=== PATIENT | female | born 1950 | race Caucasian/White ===

== ENCOUNTER 2018-01-07 08:36 | Emergency (ER) | payer MEDICARE, BC ==
[2018-01-07] MEDS: NS 1,000 ML IV (09:45)
[2018-01-07 10:26] LABS: BASO % 0.5 % (0.0-1.0); EOS # 0.2 10^3/uL (0.0-0.50); HEMOGLOBIN 12.2 g/dl (12.0-15.5); IMMATURE GRANULOCYTE % 0.5 % (0-3.0); LYMPH # 1.8 10^3/uL (1.5-4.5); LYMPH % 23.8 % (24.0-44.0); MEAN CORPUSCULAR HGB CONC 32.1 g/dl (32.0-36.5); MEAN CORPUSCULAR VOLUME 93.4 fl (80.0-96.0); MONO # 0.9 10^3/uL (0.0-0.8); MONO % 11.5 % (0.0-5.0); NEUTROPHILS # 4.7 10^3/uL (1.8-7.7); NEUTROPHILS % 61.7 % (36.0-66.0); PLATELET COUNT, AUTOMATED 328 10^3/uL (150-450); RED BLOOD COUNT 4.07 10^6/uL (4.00-5.40); RED CELL DISTRIBUTION WIDTH 11.8 % (11.5-14.5); WHITE BLOOD COUNT 7.6 10^3/uL (4.0-10.0)
[2018-01-07 11:34] LABS: ALBUMIN 2.8 GM/DL (3.2-5.2); ALKALINE PHOSPHATASE 69 U/L (45-117); ALT/SGPT 78 U/L (12-78); ANION GAP 4 MEQ/L (8-16); AST/SGOT 24 U/L (7-37); BILIRUBIN,DIRECT 0.1 MG/DL (0.0-0.2); BILIRUBIN,TOTAL 0.4 MG/DL (0.2-1.0); BLOOD UREA NITROGEN 9 MG/DL (7-18); CALCIUM LEVEL 10.1 MG/DL (8.8-10.2); CARBON DIOXIDE LEVEL 32 MEQ/L (21-32); CHLORIDE LEVEL 106 MEQ/L (98-107); CREATININE FOR GFR 0.74 MG/DL (0.55-1.30); GLOMERULAR FILTRATION RATE > 60.0 (>45); GLUCOSE, FASTING 100 MG/DL (70-100); LIPASE 407 U/L (73-393); POTASSIUM SERUM 3.7 MEQ/L (3.5-5.1); SODIUM LEVEL 142 MEQ/L (136-145); TOTAL PROTEIN 6.8 GM/DL (6.4-8.2)
[2018-01-07 13:54] LABS: ABG BASE EXCESS 0.1 (-2.0-2.0); ABG HCO3 23.8 MEQ/L (22.0-26.0); ABG O2 SATURATION 93.7 % (95.0-99.0); ABG PARTIAL PRESSURE CO2 35.3 mmHg (35.0-45.0); ABG PARTIAL PRESSURE O2 68.6 mmHg (75.0-100.0); ABG STANDARD HCO3 24.5 MEQ/L (22.0-26.0); ABG TOTAL CO2 24.8 MEQ/L (23.0-31.0); ABG pH (ARTERIAL) 7.446 UNITS (7.350-7.450)
== END 2018-01-07 14:59 | disposition home or self-care (01) ==
LOC: M ED 08:36
DX: J90 Pleural effusion, not elsewhere classified (principal); Z79.899 Other long term (current) drug therapy; Z86.39 Personal history of other endocrine, nutritional and metabolic disease; Z87.19 Personal history of other diseases of the digestive system; Z98.890 Other specified postprocedural states
CPT/HCPCS: 71046

== ENCOUNTER 2018-04-09 13:11 | Inpatient (IN) | payer MEDICARE, BC ==
[2018-04-09] MEDS ORDERED: LIDOCAINE 1% MDV 20ML VIAL SQ (13:30)
[2018-04-09] MEDS ORDERED: NS 1,000 ML IV (13:30)
[2018-04-09] MEDS: LR 1,000 ML IV ×3 (13:57→20:34)
[2018-04-09] MEDS ORDERED: fentaNYL 100 MCG/2 ML INJECTION (J3010) As Ordered ×2 (15:48→17:12)
[2018-04-09] MEDS ORDERED: PROPOFOL 200 MG/20 ML VIAL As Ordered (15:48)
[2018-04-09] MEDS ORDERED: ROCURONIUM BROMIDE 50 MG/5 ML VIAL As Ordered (15:48)
[2018-04-09] MEDS ORDERED: LIDOCAINE 2% INJ 100 MG/5 ML SDV (FOR ANES.) As Ordered (15:48)
[2018-04-09] MEDS ORDERED: ONDANSETRON 4MG/2ML VIAL (J2405) As Ordered ×2 (15:48→17:07)
[2018-04-09] MEDS ORDERED: MIDAZOLAM INJ 2 MG/2 ML VIAL (J2250) As Ordered (15:48)
[2018-04-09] MEDS ORDERED: KETOROLAC 60 MG/2 ML VIAL (J1885) As Ordered (15:48)
[2018-04-09] MEDS ORDERED: NEOSTIGMINE 10 MG/10 ML VIAL (J2710) As Ordered (15:48)
[2018-04-09] MEDS ORDERED: GLYCOPYRROLATE INJ 0.2 MG/ML 2 ML VIAL As Ordered (15:48)
[2018-04-09] MEDS ORDERED: dexameTHASONE 4 MG/ML 1ML VIAL (J1100) As Ordered (15:48)
[2018-04-09] MEDS: ISOVUE-300 61% 50ML VIAL (Q9967) As Ordered (16:26)
[2018-04-09] MEDS ORDERED: EPINEPHrine 1MG/10ML SYRINGE 1.5IN As Ordered (16:43)
[2018-04-09] MEDS: EPINEPHrine 1MG/10ML SYRINGE 1.5IN As Ordered (16:45)
[2018-04-09] MEDS: EPINEPHrine 1MG/ML INJ 30ML MD-VIAL As Ordered (16:57)
[2018-04-09] MEDS: ONDANSETRON 4MG/2ML VIAL (J2405) IV (17:16)
[2018-04-09] MEDS: fentaNYL 100 MCG/2 ML INJECTION (J3010) IV ×2 (17:25→17:26)
[2018-04-09] MEDS ORDERED: PERCOCET 5MG/325MG TAB PO (17:30)
[2018-04-09] MEDS ORDERED: HYDROMORPHONE HCL 0.5 MG/ 0.5 ML SYRINGE (J1170 PER 1) As Ordered (17:45)
[2018-04-09] MEDS: HYDROMORPHONE HCL 0.5 MG/ 0.5 ML SYRINGE (J1170 PER 1) IV ×2 (17:49→18:21)
[2018-04-09] MEDS ORDERED: MEPERIDINE 50 MG/ML 1ML VIAL (J2175) IM (18:00)
[2018-04-09] MEDS ORDERED: OXAZEPAM 10 MG CAP PO (18:45)
[2018-04-09 19:18] LABS: HEMOGLOBIN 14.4 g/dl (12.0-15.5); MEAN CORPUSCULAR HEMOGLOBIN 30.8 pg (27.0-33.0); MEAN CORPUSCULAR VOLUME 96.2 fl (80.0-96.0); PLATELET COUNT, AUTOMATED 219 10^3/uL (150-450); RED BLOOD COUNT 4.68 10^6/uL (4.00-5.40); RED CELL DISTRIBUTION WIDTH 13.2 % (11.5-14.5); WHITE BLOOD COUNT 8.3 10^3/uL (4.0-10.0)
[2018-04-09 19:38] LABS: ALBUMIN 3.4 GM/DL (3.2-5.2); ALKALINE PHOSPHATASE 54 U/L (45-117); ALT/SGPT 31 U/L (12-78); ANION GAP 7 MEQ/L (8-16); AST/SGOT 20 U/L (7-37); BILIRUBIN,TOTAL 0.3 MG/DL (0.2-1.0); BLOOD UREA NITROGEN 18 MG/DL (7-18); CALCIUM LEVEL 9.3 MG/DL (8.8-10.2); CARBON DIOXIDE LEVEL 29 MEQ/L (21-32); CHLORIDE LEVEL 106 MEQ/L (98-107); CREATININE FOR GFR 0.82 MG/DL (0.55-1.30); GLOMERULAR FILTRATION RATE > 60.0 (>45); GLUCOSE, FASTING 101 MG/DL (70-100); LIPASE 512 U/L (73-393); MAGNESIUM LEVEL 1.9 MG/DL (1.8-2.4); POTASSIUM SERUM 3.9 MEQ/L (3.5-5.1); SODIUM LEVEL 142 MEQ/L (136-145); TOTAL PROTEIN 6.8 GM/DL (6.4-8.2)
[2018-04-09] MEDS: MORPHINE 4 MG/ML 1ML VIAL/SYRINGE (J2270) IV ×2 (19:47→23:11)
[2018-04-09] MEDS: OMEPRAZOLE 20 MG CAP PO (23:10)
[2018-04-10] MEDS: MORPHINE 4 MG/ML 1ML VIAL/SYRINGE (J2270) IV ×5 (02:52→18:18)
[2018-04-10] MEDS: KETOROLAC 30 MG/ML VIAL (J1885) IV (03:38)
[2018-04-10] MEDS: LR 1,000 ML IV ×3 (04:48→17:02)
[2018-04-10 06:48] LABS: BASO % 0.2 % (0.0-1.0); HEMATOCRIT 44.5 % (36.0-47.0); HEMOGLOBIN 14.2 g/dl (12.0-15.5); IMMATURE GRANULOCYTE % 0.4 % (0-3.0); LYMPH # 1.2 10^3/uL (1.5-4.5); LYMPH % 10.5 % (24.0-44.0); MEAN CORPUSCULAR HGB CONC 31.9 g/dl (32.0-36.5); MEAN CORPUSCULAR VOLUME 93.9 fl (80.0-96.0); MONO # 0.5 10^3/uL (0.0-0.8); MONO % 4.1 % (0.0-5.0); NEUTROPHILS # 9.4 10^3/uL (1.8-7.7); NEUTROPHILS % 84.8 % (36.0-66.0); PLATELET COUNT, AUTOMATED 251 10^3/uL (150-450); RED BLOOD COUNT 4.74 10^6/uL (4.00-5.40); RED CELL DISTRIBUTION WIDTH 12.8 % (11.5-14.5)
[2018-04-10 07:02] LABS: AMYLASE 434 U/L (25-115)
[2018-04-10 07:15] LABS: ALBUMIN 3.2 GM/DL (3.2-5.2); ALBUMIN/GLOBULIN RATIO 1.07 (1.00-1.93); ALKALINE PHOSPHATASE 57 U/L (45-117); ALT/SGPT 28 U/L (12-78); ANION GAP 7 MEQ/L (8-16); AST/SGOT 16 U/L (7-37); BILIRUBIN,TOTAL 0.3 MG/DL (0.2-1.0); BLOOD UREA NITROGEN 20 MG/DL (7-18); CALCIUM LEVEL 9.4 MG/DL (8.8-10.2); CARBON DIOXIDE LEVEL 30 MEQ/L (21-32); CHLORIDE LEVEL 105 MEQ/L (98-107); CREATININE FOR GFR 0.81 MG/DL (0.55-1.30); GLOMERULAR FILTRATION RATE > 60.0 (>45); GLUCOSE, FASTING 119 MG/DL (70-100); LIPASE 5034 U/L (73-393); SODIUM LEVEL 142 MEQ/L (136-145); TOTAL PROTEIN 6.2 GM/DL (6.4-8.2)
[2018-04-10 07:16] LABS: POTASSIUM SERUM 5.3 MEQ/L (3.5-5.1)
[2018-04-10] MEDS: OMEPRAZOLE 20 MG CAP PO (08:27)
[2018-04-10] MEDS: ACETAMINOPHEN TAB 650MG DOSE (2X325MG) PO ×2 (08:27→13:26)
[2018-04-10] MEDS: SERTRALINE HCL 25 MG TABLET PO (08:28)
[2018-04-10] MEDS ORDERED: LOSARTAN 50 MG TAB PO (09:00)
[2018-04-10] MEDS: ONDANSETRON 4MG/2ML VIAL (J2405) IV ×2 (09:45→17:01)
[2018-04-10] MEDS: MEPERIDINE INJ 25 MG/ML VIAL (J2175) IM (13:23)
[2018-04-10] MEDS ORDERED: ISOVUE-370 76% 100ML VIAL (Q9967) As Ordered (15:52)
[2018-04-10] MEDS: MEROPENEM INJ 1 GM in APPROPRIATE DILUENT 1 EA IV (17:01)
[2018-04-10 18:42] LABS: LACTIC ACID SEPSIS PROTOCOL 2.1 MMOL/L (0.4-2.0)
[2018-04-10] MEDS: PANTOPRAZOLE 40MG INJ (PROTONIX) (C9113) IV (21:21)
[2018-04-10] MEDS: HYDROMORPHONE HCL 0.5 MG/ 0.5 ML SYRINGE (J1170 PER 1) IV (21:21)
[2018-04-10] MEDS ORDERED: MEPERIDINE 50 MG/ML 1ML VIAL (J2175) IM (21:45)
[2018-04-11] MEDS: MEROPENEM INJ 1 GM in APPROPRIATE DILUENT 1 EA IV ×3 (00:28→16:42)
[2018-04-11] MEDS: HYDROMORPHONE HCL 0.5 MG/ 0.5 ML SYRINGE (J1170 PER 1) IV ×7 (00:30→20:40)
[2018-04-11] MEDS: LR 1,000 ML IV ×4 (01:58→20:40)
[2018-04-11 05:11] LABS: HEMATOCRIT 47.9 % (36.0-47.0); HEMOGLOBIN 15.1 g/dl (12.0-15.5); MEAN CORPUSCULAR HEMOGLOBIN 30.4 pg (27.0-33.0); MEAN CORPUSCULAR HGB CONC 31.5 g/dl (32.0-36.5); MEAN CORPUSCULAR VOLUME 96.4 fl (80.0-96.0); PLATELET COUNT, AUTOMATED 240 10^3/uL (150-450); RED BLOOD COUNT 4.97 10^6/uL (4.00-5.40); RED CELL DISTRIBUTION WIDTH 13.3 % (11.5-14.5); WHITE BLOOD COUNT 7.3 10^3/uL (4.0-10.0)
[2018-04-11 05:33] LABS: LACTIC ACID SEPSIS PROTOCOL 1.2 MMOL/L (0.4-2.0)
[2018-04-11 05:35] LABS: ALBUMIN 2.8 GM/DL (3.2-5.2); ALBUMIN/GLOBULIN RATIO 0.85 (1.00-1.93); ALKALINE PHOSPHATASE 40 U/L (45-117); ALT/SGPT 22 U/L (12-78); ANION GAP 7 MEQ/L (8-16); AST/SGOT 12 U/L (7-37); BILIRUBIN,TOTAL 0.5 MG/DL (0.2-1.0); BLOOD UREA NITROGEN 16 MG/DL (7-18); CALCIUM LEVEL 8.7 MG/DL (8.8-10.2); CARBON DIOXIDE LEVEL 27 MEQ/L (21-32); CHLORIDE LEVEL 107 MEQ/L (98-107); CREATININE FOR GFR 0.77 MG/DL (0.55-1.30); GLOMERULAR FILTRATION RATE > 60.0 (>45); GLUCOSE, FASTING 120 MG/DL (70-100); LIPASE 3528 U/L (73-393); MAGNESIUM LEVEL 1.8 MG/DL (1.8-2.4); POTASSIUM SERUM 4.3 MEQ/L (3.5-5.1); SODIUM LEVEL 141 MEQ/L (136-145); TOTAL PROTEIN 6.1 GM/DL (6.4-8.2)
[2018-04-11] MEDS: PANTOPRAZOLE 40MG INJ (PROTONIX) (C9113) IV ×2 (08:13→20:39)
[2018-04-11] MEDS: ONDANSETRON 4MG/2ML VIAL (J2405) IV ×2 (08:44→14:39)
[2018-04-12] MEDS: MEROPENEM INJ 1 GM in APPROPRIATE DILUENT 1 EA IV ×3 (00:52→17:23)
[2018-04-12] MEDS: HYDROMORPHONE HCL 0.5 MG/ 0.5 ML SYRINGE (J1170 PER 1) IV ×3 (00:53→10:46)
[2018-04-12 04:57] LABS: HEMATOCRIT 47.2 % (36.0-47.0); HEMOGLOBIN 14.7 g/dl (12.0-15.5); MEAN CORPUSCULAR HEMOGLOBIN 30.2 pg (27.0-33.0); MEAN CORPUSCULAR HGB CONC 31.1 g/dl (32.0-36.5); MEAN CORPUSCULAR VOLUME 97.1 fl (80.0-96.0); PLATELET COUNT, AUTOMATED 230 10^3/uL (150-450); RED BLOOD COUNT 4.86 10^6/uL (4.00-5.40); RED CELL DISTRIBUTION WIDTH 13.4 % (11.5-14.5); WHITE BLOOD COUNT 7.8 10^3/uL (4.0-10.0)
[2018-04-12 05:15] LABS: ALBUMIN 2.1 GM/DL (3.2-5.2); ALBUMIN/GLOBULIN RATIO 0.62 (1.00-1.93); ALKALINE PHOSPHATASE 32 U/L (45-117); ALT/SGPT 15 U/L (12-78); ANION GAP 6 MEQ/L (8-16); AST/SGOT 10 U/L (7-37); BILIRUBIN,TOTAL 0.4 MG/DL (0.2-1.0); BLOOD UREA NITROGEN 15 MG/DL (7-18); CARBON DIOXIDE LEVEL 30 MEQ/L (21-32); CHLORIDE LEVEL 106 MEQ/L (98-107); GLOMERULAR FILTRATION RATE > 60.0 (>45); GLUCOSE, FASTING 105 MG/DL (70-100); LIPASE 1030 U/L (73-393); MAGNESIUM LEVEL 1.8 MG/DL (1.8-2.4); POTASSIUM SERUM 4.3 MEQ/L (3.5-5.1); SODIUM LEVEL 142 MEQ/L (136-145); TOTAL PROTEIN 5.5 GM/DL (6.4-8.2)
[2018-04-12] MEDS: LR 1,000 ML IV (05:25)
[2018-04-12] MEDS: PANTOPRAZOLE 40MG INJ (PROTONIX) (C9113) IV ×2 (08:20→19:42)
[2018-04-12] MEDS: PERCOCET 5MG/325MG TAB PO ×3 (14:14→23:14)
[2018-04-12] MEDS: ACETAMINOPHEN TAB 650MG DOSE (2X325MG) PO (17:23)
[2018-04-12] MEDS: LOSARTAN 50 MG TAB PO (19:42)
[2018-04-12] MEDS: ONDANSETRON 4MG/2ML VIAL (J2405) IV (19:46)
[2018-04-13] MEDS: MEROPENEM INJ 1 GM in APPROPRIATE DILUENT 1 EA IV ×3 (01:13→16:09)
[2018-04-13] MEDS: PERCOCET 5MG/325MG TAB PO ×4 (03:36→22:20)
[2018-04-13] MEDS: ONDANSETRON 4MG/2ML VIAL (J2405) IV ×3 (03:36→18:19)
[2018-04-13 06:08] LABS: HEMATOCRIT 40.7 % (36.0-47.0); MEAN CORPUSCULAR HGB CONC 31.9 g/dl (32.0-36.5); MEAN CORPUSCULAR VOLUME 97.1 fl (80.0-96.0); PLATELET COUNT, AUTOMATED 250 10^3/uL (150-450); RED BLOOD COUNT 4.19 10^6/uL (4.00-5.40); RED CELL DISTRIBUTION WIDTH 13.3 % (11.5-14.5); WHITE BLOOD COUNT 9.6 10^3/uL (4.0-10.0)
[2018-04-13 06:43] LABS: ALBUMIN 1.9 GM/DL (3.2-5.2); ALBUMIN/GLOBULIN RATIO 0.54 (1.00-1.93); ALKALINE PHOSPHATASE 31 U/L (45-117); ALT/SGPT 13 U/L (12-78); ANION GAP 6 MEQ/L (8-16); AST/SGOT 14 U/L (7-37); BILIRUBIN,TOTAL 0.5 MG/DL (0.2-1.0); BLOOD UREA NITROGEN 16 MG/DL (7-18); CALCIUM LEVEL 9.3 MG/DL (8.8-10.2); CARBON DIOXIDE LEVEL 32 MEQ/L (21-32); CHLORIDE LEVEL 103 MEQ/L (98-107); CREATININE FOR GFR 0.64 MG/DL (0.55-1.30); GLOMERULAR FILTRATION RATE > 60.0 (>45); GLUCOSE, FASTING 110 MG/DL (70-100); LIPASE 341 U/L (73-393); MAGNESIUM LEVEL 2.1 MG/DL (1.8-2.4); POTASSIUM SERUM 4.1 MEQ/L (3.5-5.1); SODIUM LEVEL 141 MEQ/L (136-145); TOTAL PROTEIN 5.4 GM/DL (6.4-8.2)
[2018-04-13] MEDS: PANTOPRAZOLE 40MG INJ (PROTONIX) (C9113) IV ×2 (08:13→20:01)
[2018-04-13] MEDS: SERTRALINE HCL 25 MG TABLET PO (08:14)
[2018-04-13] MEDS: OMEPRAZOLE 20 MG CAP PO (08:14)
[2018-04-13] MEDS: MORPHINE 4 MG/ML 1ML VIAL/SYRINGE (J2270) IV (08:14)
[2018-04-13] MEDS: LOSARTAN 50 MG TAB PO (20:01)
[2018-04-14] MEDS: MEROPENEM INJ 1 GM in APPROPRIATE DILUENT 1 EA IV ×3 (01:12→16:54)
[2018-04-14] MEDS: PERCOCET 5MG/325MG TAB PO ×3 (02:32→21:35)
[2018-04-14 06:05] LABS: HEMATOCRIT 39.3 % (36.0-47.0); HEMOGLOBIN 12.4 g/dl (12.0-15.5); MEAN CORPUSCULAR HEMOGLOBIN 30.5 pg (27.0-33.0); MEAN CORPUSCULAR HGB CONC 31.6 g/dl (32.0-36.5); MEAN CORPUSCULAR VOLUME 96.8 fl (80.0-96.0); PLATELET COUNT, AUTOMATED 261 10^3/uL (150-450); RED BLOOD COUNT 4.06 10^6/uL (4.00-5.40); RED CELL DISTRIBUTION WIDTH 13.3 % (11.5-14.5); WHITE BLOOD COUNT 9.3 10^3/uL (4.0-10.0)
[2018-04-14 06:17] LABS: ALBUMIN 1.9 GM/DL (3.2-5.2); ALBUMIN/GLOBULIN RATIO 0.51 (1.00-1.93); ALKALINE PHOSPHATASE 37 U/L (45-117); ALT/SGPT 14 U/L (12-78); ANION GAP 6 MEQ/L (8-16); AST/SGOT 21 U/L (7-37); BILIRUBIN,TOTAL 0.4 MG/DL (0.2-1.0); BLOOD UREA NITROGEN 16 MG/DL (7-18); CALCIUM LEVEL 9.2 MG/DL (8.8-10.2); CARBON DIOXIDE LEVEL 32 MEQ/L (21-32); CHLORIDE LEVEL 103 MEQ/L (98-107); CREATININE FOR GFR 0.59 MG/DL (0.55-1.30); GLOMERULAR FILTRATION RATE > 60.0 (>45); GLUCOSE, FASTING 95 MG/DL (70-100); LIPASE 173 U/L (73-393); MAGNESIUM LEVEL 2.4 MG/DL (1.8-2.4); POTASSIUM SERUM 4.2 MEQ/L (3.5-5.1); SODIUM LEVEL 141 MEQ/L (136-145); TOTAL PROTEIN 5.6 GM/DL (6.4-8.2)
[2018-04-14] MEDS: OMEPRAZOLE 20 MG CAP PO (09:32)
[2018-04-14] MEDS: PANTOPRAZOLE 40MG INJ (PROTONIX) (C9113) IV ×2 (09:32→21:35)
[2018-04-14] MEDS: SERTRALINE HCL 25 MG TABLET PO (09:32)
[2018-04-14] MEDS: ACETAMINOPHEN TAB 650MG DOSE (2X325MG) PO ×2 (13:20→17:59)
[2018-04-14] MEDS: ONDANSETRON 4MG/2ML VIAL (J2405) IV (17:19)
[2018-04-14] MEDS: LOSARTAN 50 MG TAB PO (21:34)
[2018-04-15] MEDS: MEROPENEM INJ 1 GM in APPROPRIATE DILUENT 1 EA IV ×3 (01:21→17:09)
[2018-04-15] MEDS: ONDANSETRON 4MG/2ML VIAL (J2405) IV ×3 (01:21→19:52)
[2018-04-15] MEDS: PERCOCET 5MG/325MG TAB PO ×2 (01:45→21:38)
[2018-04-15 05:56] LABS: HEMATOCRIT 37.9 % (36.0-47.0); HEMOGLOBIN 12.1 g/dl (12.0-15.5); MEAN CORPUSCULAR HEMOGLOBIN 30.6 pg (27.0-33.0); MEAN CORPUSCULAR HGB CONC 31.9 g/dl (32.0-36.5); MEAN CORPUSCULAR VOLUME 95.7 fl (80.0-96.0); PLATELET COUNT, AUTOMATED 254 10^3/uL (150-450); RED BLOOD COUNT 3.96 10^6/uL (4.00-5.40); RED CELL DISTRIBUTION WIDTH 13.2 % (11.5-14.5); WHITE BLOOD COUNT 8.7 10^3/uL (4.0-10.0)
[2018-04-15 06:18] LABS: ALBUMIN 1.8 GM/DL (3.2-5.2); ALBUMIN/GLOBULIN RATIO 0.47 (1.00-1.93); ALKALINE PHOSPHATASE 64 U/L (45-117); ALT/SGPT 22 U/L (12-78); ANION GAP 4 MEQ/L (8-16); AST/SGOT 24 U/L (7-37); BILIRUBIN,TOTAL 0.4 MG/DL (0.2-1.0); BLOOD UREA NITROGEN 12 MG/DL (7-18); CALCIUM LEVEL 9.5 MG/DL (8.8-10.2); CARBON DIOXIDE LEVEL 36 MEQ/L (21-32); CHLORIDE LEVEL 101 MEQ/L (98-107); CREATININE FOR GFR 0.54 MG/DL (0.55-1.30); GLOMERULAR FILTRATION RATE > 60.0 (>45); GLUCOSE, FASTING 92 MG/DL (70-100); LIPASE 224 U/L (73-393); MAGNESIUM LEVEL 2.1 MG/DL (1.8-2.4); SODIUM LEVEL 141 MEQ/L (136-145); TOTAL PROTEIN 5.6 GM/DL (6.4-8.2)
[2018-04-15] MEDS: ACETAMINOPHEN TAB 650MG DOSE (2X325MG) PO ×3 (08:26→17:10)
[2018-04-15] MEDS: PANTOPRAZOLE 40MG INJ (PROTONIX) (C9113) IV ×2 (08:26→21:38)
[2018-04-15] MEDS: OMEPRAZOLE 20 MG CAP PO (08:26)
[2018-04-15] MEDS: SERTRALINE HCL 25 MG TABLET PO (08:26)
[2018-04-15] MEDS: SENOKOT S TAB PO ×2 (09:00→21:38)
[2018-04-15] MEDS: MOM 30ML SUSPENSION UDC PO (17:09)
[2018-04-15] MEDS: LOSARTAN 50 MG TAB PO (21:37)
[2018-04-16] MEDS: MEROPENEM INJ 1 GM in APPROPRIATE DILUENT 1 EA IV ×3 (01:27→16:00)
[2018-04-16] MEDS: PERCOCET 5MG/325MG TAB PO ×5 (02:01→20:27)
[2018-04-16 05:55] LABS: HEMATOCRIT 36.9 % (36.0-47.0); HEMOGLOBIN 11.8 g/dl (12.0-15.5); MEAN CORPUSCULAR HEMOGLOBIN 30.3 pg (27.0-33.0); MEAN CORPUSCULAR VOLUME 94.6 fl (80.0-96.0); PLATELET COUNT, AUTOMATED 281 10^3/uL (150-450); RED CELL DISTRIBUTION WIDTH 13.3 % (11.5-14.5); WHITE BLOOD COUNT 10.8 10^3/uL (4.0-10.0)
[2018-04-16 06:23] LABS: ALBUMIN 1.9 GM/DL (3.2-5.2); ALBUMIN/GLOBULIN RATIO 0.53 (1.00-1.93); ALKALINE PHOSPHATASE 49 U/L (45-117); ALT/SGPT 26 U/L (12-78); ANION GAP 7 MEQ/L (8-16); AST/SGOT 29 U/L (7-37); BILIRUBIN,TOTAL 0.3 MG/DL (0.2-1.0); BLOOD UREA NITROGEN 11 MG/DL (7-18); CALCIUM LEVEL 9.3 MG/DL (8.8-10.2); CARBON DIOXIDE LEVEL 32 MEQ/L (21-32); CHLORIDE LEVEL 102 MEQ/L (98-107); CREATININE FOR GFR 0.48 MG/DL (0.55-1.30); GLOMERULAR FILTRATION RATE > 60.0 (>45); GLUCOSE, FASTING 103 MG/DL (70-100); LIPASE 322 U/L (73-393); MAGNESIUM LEVEL 2.2 MG/DL (1.8-2.4); POTASSIUM SERUM 3.7 MEQ/L (3.5-5.1); SODIUM LEVEL 141 MEQ/L (136-145); TOTAL PROTEIN 5.5 GM/DL (6.4-8.2)
[2018-04-16] MEDS: OMEPRAZOLE 20 MG CAP PO (08:11)
[2018-04-16] MEDS: SENOKOT S TAB PO ×2 (08:11→20:27)
[2018-04-16] MEDS: PANTOPRAZOLE 40MG INJ (PROTONIX) (C9113) IV ×2 (08:11→20:26)
[2018-04-16] MEDS: SERTRALINE HCL 25 MG TABLET PO (08:11)
[2018-04-16] MEDS: MOM 30ML SUSPENSION UDC PO (08:14)
[2018-04-16] MEDS: ONDANSETRON 4MG/2ML VIAL (J2405) IV ×2 (09:25→23:21)
[2018-04-16] MEDS: FUROSEMIDE 40 MG TAB PO (16:00)
[2018-04-16] MEDS: LOSARTAN 50 MG TAB PO (20:26)
[2018-04-17] MEDS: PERCOCET 5MG/325MG TAB PO ×5 (00:41→23:57)
[2018-04-17] MEDS: MEROPENEM INJ 1 GM in APPROPRIATE DILUENT 1 EA IV ×3 (01:47→18:07)
[2018-04-17 08:59] LABS: HEMATOCRIT 39.7 % (36.0-47.0); HEMOGLOBIN 12.5 g/dl (12.0-15.5); MEAN CORPUSCULAR HEMOGLOBIN 30.7 pg (27.0-33.0); MEAN CORPUSCULAR HGB CONC 31.5 g/dl (32.0-36.5); MEAN CORPUSCULAR VOLUME 97.5 fl (80.0-96.0); PLATELET COUNT, AUTOMATED 300 10^3/uL (150-450); RED BLOOD COUNT 4.07 10^6/uL (4.00-5.40); RED CELL DISTRIBUTION WIDTH 13.4 % (11.5-14.5); WHITE BLOOD COUNT 12.5 10^3/uL (4.0-10.0)
[2018-04-17 09:05] LABS: ADD MANUAL DIFFER YES; DIFF SLIDE NUMBER 93; POSITIVE MORPH POS FLAG
[2018-04-17 09:20] LABS: LYMPHOCYTES 12 % (16-52); MONOCYTES 10 % (0-8); NEUTROPHILS 78 % (35-75); PLATELET ESTIMATE NORMAL (NORMAL)
[2018-04-17 09:42] LABS: ALBUMIN 2.1 GM/DL (3.2-5.2); ALBUMIN/GLOBULIN RATIO 0.68 (1.00-1.93); ALKALINE PHOSPHATASE 57 U/L (45-117); ALT/SGPT 30 U/L (12-78); ANION GAP 6 MEQ/L (8-16); AST/SGOT 30 U/L (7-37); BILIRUBIN,TOTAL 0.4 MG/DL (0.2-1.0); BLOOD UREA NITROGEN 10 MG/DL (7-18); CALCIUM LEVEL 9.4 MG/DL (8.8-10.2); CARBON DIOXIDE LEVEL 36 MEQ/L (21-32); CHLORIDE LEVEL 98 MEQ/L (98-107); CREATININE FOR GFR 0.54 MG/DL (0.55-1.30); GLOMERULAR FILTRATION RATE > 60.0 (>45); GLUCOSE, FASTING 94 MG/DL (70-100); MAGNESIUM LEVEL 2.2 MG/DL (1.8-2.4); POTASSIUM SERUM 4.1 MEQ/L (3.5-5.1); SODIUM LEVEL 140 MEQ/L (136-145); TOTAL PROTEIN 5.2 GM/DL (6.4-8.2)
[2018-04-17] MEDS: PANTOPRAZOLE 40MG INJ (PROTONIX) (C9113) IV ×2 (10:14→20:10)
[2018-04-17] MEDS: OMEPRAZOLE 20 MG CAP PO (10:14)
[2018-04-17] MEDS: SERTRALINE HCL 25 MG TABLET PO (10:14)
[2018-04-17] MEDS: FUROSEMIDE 40 MG TAB PO ×2 (10:15→20:09)
[2018-04-17] MEDS: SENOKOT S TAB PO ×2 (10:15→20:09)
[2018-04-17] MEDS: LACTULOSE 20 GM/30 ML SYRUP UD PO ×3 (12:45→23:56)
[2018-04-17] MEDS: MAG SULF 1GM/100ML (MAG RUN) 1 GM in APPROPRIATE DILUENT 1 EA IV (12:45)
[2018-04-17] MEDS ORDERED: PERCOCET 5MG/325MG TAB PO (15:00)
[2018-04-17 15:02] LABS: LDH LACTATE DEHYDROGENASE 275 U/L (84-246)
[2018-04-17 15:07] LABS: INR 1.22; PROTHROMBIN TIME 15.6 SECONDS (12.1-14.4)
[2018-04-17 16:40] LABS: APPEARANCE, BODY FLUID HAZY (CLEAR); PLEURAL FL COLOR YELLOW (COLORLESS); SOURCE, BODY FLUID PLEURAL
[2018-04-17 16:46] LABS: BF DIFF IF INDICATED? YES (NO); BF MONONUCLEAR CELL % 75.8 % (0-0); BF POLYMORPHONUCLEAR CELL % 24.2 % (0-0); RBC BODY FLUID < 2 10^3/uL (<2); WBC BODY FLUID 240 /uL (0-10)
[2018-04-17 17:04] LABS: PH BODY FLUID 7.676 UNITS (NOT ESTABLISHED); SOURCE, BODY FLUID pH PLEURAL
[2018-04-17 17:07] LABS: AMYLASE, BODY FLUID 150 U/L (NOT ESTABLISHED); CHOLESTEROL, BODY FLUID < 50 MG/DL (NOT ESTABLISHED); LDH, BODY FLUID 183 U/L (NOT ESTABLISHED); SOURCE, BODY FLUID ALBUMIN PLEURAL; SOURCE, BODY FLUID AMYLASE PLEURAL; SOURCE, BODY FLUID CHOL PLEURAL; SOURCE, BODY FLUID GLUCOSE PLEURAL; SOURCE, BODY FLUID LDH PLEURAL; SOURCE, BODY FLUID TOT PROTEIN PLEURAL; SOURCE, BODY FLUID TRIG PLEURAL; TOTAL PROTEIN, BODY FLUID 2.3 G/DL (NOT ESTABLISHED); TRIGLYCERIDE, BODY FLUID 14 MG/DL (NOT ESTABLISHED)
[2018-04-17] MEDS: LevoFLOXacin 750 MG TABLET PO (19:46)
[2018-04-17] MEDS: CALCIUM CARBONATE 500 MG CHEW U/D PO (20:09)
[2018-04-17] MEDS: LOSARTAN 50 MG TAB PO (20:10)
[2018-04-18] MEDS: CALCIUM CARBONATE 500 MG CHEW U/D PO (04:01)
[2018-04-18] MEDS: PERCOCET 5MG/325MG TAB PO ×3 (04:01→12:42)
[2018-04-18] MEDS: LACTULOSE 20 GM/30 ML SYRUP UD PO (05:12)
[2018-04-18 06:54] LABS: BASO % 0.3 % (0.0-1.0); EOS # 0.1 10^3/uL (0.0-0.50); EOS % 0.6 % (0.0-3.0); HEMATOCRIT 36.9 % (36.0-47.0); HEMOGLOBIN 11.7 g/dl (12.0-15.5); IMMATURE GRANULOCYTE % 1.6 % (0-3.0); LYMPH # 1.7 10^3/uL (1.5-4.5); LYMPH % 13.7 % (24.0-44.0); MEAN CORPUSCULAR HEMOGLOBIN 30.5 pg (27.0-33.0); MEAN CORPUSCULAR HGB CONC 31.7 g/dl (32.0-36.5); MEAN CORPUSCULAR VOLUME 96.3 fl (80.0-96.0); MONO # 1.2 10^3/uL (0.0-0.8); MONO % 9.4 % (0.0-5.0); NEUTROPHILS # 9.4 10^3/uL (1.8-7.7); NEUTROPHILS % 74.4 % (36.0-66.0); PLATELET COUNT, AUTOMATED 249 10^3/uL (150-450); RED BLOOD COUNT 3.83 10^6/uL (4.00-5.40); RED CELL DISTRIBUTION WIDTH 13.4 % (11.5-14.5); WHITE BLOOD COUNT 12.7 10^3/uL (4.0-10.0)
[2018-04-18 07:20] LABS: ALBUMIN 1.9 GM/DL (3.2-5.2); ALBUMIN/GLOBULIN RATIO 0.61 (1.00-1.93); ALKALINE PHOSPHATASE 53 U/L (45-117); ALT/SGPT 32 U/L (12-78); ANION GAP 5 MEQ/L (8-16); AST/SGOT 34 U/L (7-37); BILIRUBIN,TOTAL 0.3 MG/DL (0.2-1.0); BLOOD UREA NITROGEN 10 MG/DL (7-18); CALCIUM LEVEL 9.1 MG/DL (8.8-10.2); CARBON DIOXIDE LEVEL 36 MEQ/L (21-32); CHLORIDE LEVEL 99 MEQ/L (98-107); CREATININE FOR GFR 0.48 MG/DL (0.55-1.30); GLOMERULAR FILTRATION RATE > 60.0 (>45); GLUCOSE, FASTING 93 MG/DL (70-100); MAGNESIUM LEVEL 2.2 MG/DL (1.8-2.4); SODIUM LEVEL 140 MEQ/L (136-145)
[2018-04-18] MEDS: FUROSEMIDE 40 MG TAB PO (08:24)
[2018-04-18] MEDS: SERTRALINE HCL 25 MG TABLET PO (08:24)
[2018-04-18] MEDS: PANTOPRAZOLE 40MG INJ (PROTONIX) (C9113) IV (08:25)
[2018-04-18] MEDS: SENOKOT S TAB PO (08:25)
[2018-04-18] MEDS: OMEPRAZOLE 20 MG CAP PO (08:25)
== END 2018-04-18 13:30 | disposition home or self-care (01) | DRG 919 ==
LOC: M SDC 13:11 → M ICU 04-10 21:03 → M MS5PR 04-12 18:19 → M SDC 20:40 → M MS5PR 20:43 → M ED INP 04-10 21:24 → M MS5PR 20:40 → M SDC 04-10 20:50 → M ICU 04-10 20:50
PROC: 0FJD8ZZ Inspection of Pancreatic Duct, Via Natural or Artificial Opening Endoscopic (ICD-10-PCS; principal; 2018-04-09 15:00)
PROC: 0W993ZZ Drainage of Right Pleural Cavity, Percutaneous Approach (ICD-10-PCS; 2018-04-09 16:04)
DX: K91.71 Accidental puncture and laceration of a digestive system organ or structure during a digestive system procedure (principal); K85.90 Acute pancreatitis without necrosis or infection, unspecified; Z68.41 Body mass index [BMI] 40.0-44.9, adult; J90 Pleural effusion, not elsewhere classified; E66.01 Morbid (severe) obesity due to excess calories; K57.90 Diverticulosis of intestine, part unspecified, without perforation or abscess without bleeding; G47.33 Obstructive sleep apnea (adult) (pediatric); F32.9 Major depressive disorder, single episode, unspecified; K21.9 Gastro-esophageal reflux disease without esophagitis; I10 Essential (primary) hypertension; E78.5 Hyperlipidemia, unspecified; Z98.51 Tubal ligation status; Z96.651 Presence of right artificial knee joint; Z87.891 Personal history of nicotine dependence; Z79.899 Other long term (current) drug therapy

== ENCOUNTER → 2018-06-02 | Outpatient (REF) | payer MEDICARE, BC ==
[2018-06-02 13:29] LABS: BASO # 0.1 10^3/uL (0.0-0.2); BASO % 0.9 % (0.0-1.0); EOS # 0.4 10^3/uL (0.0-0.50); EOS % 5.6 % (0.0-3.0); HEMATOCRIT 40.3 % (36.0-47.0); HEMOGLOBIN 12.8 g/dl (12.0-15.5); IMMATURE GRANULOCYTE % 0.2 % (0-3.0); LYMPH % 29.8 % (24.0-44.0); MEAN CORPUSCULAR HEMOGLOBIN 29.4 pg (27.0-33.0); MEAN CORPUSCULAR HGB CONC 31.8 g/dl (32.0-36.5); MEAN CORPUSCULAR VOLUME 92.6 fl (80.0-96.0); MONO # 0.6 10^3/uL (0.0-0.8); MONO % 8.3 % (0.0-5.0); NEUTROPHILS # 3.6 10^3/uL (1.8-7.7); NEUTROPHILS % 55.2 % (36.0-66.0); PLATELET COUNT, AUTOMATED 368 10^3/uL (150-450); RED BLOOD COUNT 4.35 10^6/uL (4.00-5.40); RED CELL DISTRIBUTION WIDTH 13.6 % (11.5-14.5); WHITE BLOOD COUNT 6.6 10^3/uL (4.0-10.0)
[2018-06-02 14:11] LABS: ERYTHROCYTE SEDIMENTATION RATE 59 mm/hr (0-30)
[2018-06-02 15:02] LABS: ALBUMIN 3.2 GM/DL (3.2-5.2); ALBUMIN/GLOBULIN RATIO 0.82 (1.00-1.93); ALKALINE PHOSPHATASE 62 U/L (45-117); ALT/SGPT 24 U/L (12-78); ANION GAP 9 MEQ/L (8-16); AST/SGOT 19 U/L (7-37); BILIRUBIN,TOTAL 0.4 MG/DL (0.2-1.0); BLOOD UREA NITROGEN 14 MG/DL (7-18); C REACTIVE PROTEIN QUANTITATIV 0.78 MG/DL (0.00-0.30); CARBON DIOXIDE LEVEL 26 MEQ/L (21-32); CHLORIDE LEVEL 105 MEQ/L (98-107); CREATININE FOR GFR 0.78 MG/DL (0.55-1.30); GLOMERULAR FILTRATION RATE > 60.0 (>45); GLUCOSE, FASTING 106 MG/DL (70-100); POTASSIUM SERUM 4.3 MEQ/L (3.5-5.1); SODIUM LEVEL 140 MEQ/L (136-145); TOTAL PROTEIN 7.1 GM/DL (6.4-8.2)
== END ==
LOC: M SHH 11:42
DX: K85.90 Acute pancreatitis without necrosis or infection, unspecified (principal)
CPT/HCPCS: 80053

== ENCOUNTER → 2018-06-16 | Outpatient (REF) | payer MEDICARE, BC ==
[2018-06-16 14:58] LABS: BASO # 0.1 10^3/uL (0.0-0.2); BASO % 1.2 % (0.0-1.0); EOS # 0.5 10^3/uL (0.0-0.50); EOS % 8.9 % (0.0-3.0); HEMATOCRIT 39.1 % (36.0-47.0); HEMOGLOBIN 12.5 g/dl (12.0-15.5); IMMATURE GRANULOCYTE % 0.2 % (0-3.0); LYMPH # 1.8 10^3/uL (1.5-4.5); LYMPH % 36.6 % (24.0-44.0); MEAN CORPUSCULAR HEMOGLOBIN 29.1 pg (27.0-33.0); MEAN CORPUSCULAR VOLUME 91.1 fl (80.0-96.0); MONO # 0.5 10^3/uL (0.0-0.8); MONO % 9.1 % (0.0-5.0); NEUTROPHILS # 2.2 10^3/uL (1.8-7.7); PLATELET COUNT, AUTOMATED 269 10^3/uL (150-450); RED BLOOD COUNT 4.29 10^6/uL (4.00-5.40); RED CELL DISTRIBUTION WIDTH 13.5 % (11.5-14.5)
[2018-06-16 15:10] LABS: ALBUMIN 3.4 GM/DL (3.2-5.2); ALBUMIN/GLOBULIN RATIO 1.06 (1.00-1.93); ALKALINE PHOSPHATASE 75 U/L (45-117); ALT/SGPT 30 U/L (12-78); ANION GAP 7 MEQ/L (8-16); AST/SGOT 22 U/L (7-37); BILIRUBIN,TOTAL 0.3 MG/DL (0.2-1.0); BLOOD UREA NITROGEN 12 MG/DL (7-18); C REACTIVE PROTEIN QUANTITATIV 1.08 MG/DL (0.00-0.30); CALCIUM LEVEL 9.7 MG/DL (8.8-10.2); CARBON DIOXIDE LEVEL 29 MEQ/L (21-32); CHLORIDE LEVEL 106 MEQ/L (98-107); CREATININE FOR GFR 0.69 MG/DL (0.55-1.30); GLOMERULAR FILTRATION RATE > 60.0 (>45); GLUCOSE, FASTING 101 MG/DL (70-100); POTASSIUM SERUM 4.1 MEQ/L (3.5-5.1); SODIUM LEVEL 142 MEQ/L (136-145); TOTAL PROTEIN 6.6 GM/DL (6.4-8.2)
[2018-06-16 15:21] LABS: ERYTHROCYTE SEDIMENTATION RATE 39 mm/hr (0-30)
== END ==
LOC: M LAB REF 14:17
DX: Z79.899 Other long term (current) drug therapy (principal)
CPT/HCPCS: 80053

== ENCOUNTER → 2018-11-18 | Outpatient (CLI) | payer MEDICARE, BC ==
[~2018-11-18] MED LIST: APAP/CODEINE; BISO5TAB2 PO; COUM1TAB17 PO; COUM2.5T17 PO; FLEEENE4 PR; FURO40TA2 PO; LEVA1TAB2 PO; LOSA100T50 PO; MOXI1TAB PO; OMEP40CA2 PO; ONDA4TAB5; PERC5TAB12 PO; SERT25TA PO; TYLE325T5 PO; URSO300C3; URSO300C3 PO; oxygen
--- NOTE | 2018-11-18 10:37 | REPMRS ---
Patient History The patient states she had a clinical breast exam in November 2018. Patient is postmenopausal. No known family history of cancer. [facility] from [facility] Patient had a left breast localization that was benign 3D TOMOSYNTHESIS WAS PERFORMED. Digital Mammo Screening Bilat: November 18, 2018 - Exam #: [id number] Bilateral CC and MLO view(s) were taken. Technologist: Kristen Valverde, Technologist FINDINGS: There are scattered fibroglandular densities. There has been no change in the appearance of the mammogram from the prior studies. There is a mild amount of residual fibroglandular tissue which is fairly symmetric. There is no interval development of dominant mass, architectural distortion, or clustered microcalcification suggestive of malignancy. Assessment: BI-RADS/ACR category 1 mammogram. Negative Mammogram. Recommendation Routine screening mammogram in 1 year (for women over age 40). This mammogram was interpreted with the aid of an FDA-approved computer-aided dectection system. Electronically Signed By: Aamir Pacheco MD 11/18/18 [id number]
== END ==
LOC: M RAD 09:20
PROVIDERS: ATTEND Nurse Practitioner Family
DX: Z12.31 Encounter for screening mammogram for malignant neoplasm of breast (principal); Z78.0 Asymptomatic menopausal state

== ENCOUNTER → 2020-02-09 | Outpatient (CLI) | payer MEDICARE, BC ==
[~2020-02-09] MED LIST changes: -OMEP40CA2 PO; +OMEP40CA97 PO; +ONDA-83; -ONDA4TAB5; -SERT25TA PO; +SERT25TA85 PO
--- NOTE | 2020-02-09 09:23 | REPMRS ---
Patient History The patient states she had a clinical breast exam in OCT 2019.No known family history of cancer. Digital Woman Screen Mammo: February 09, 2020 - Exam #: [id number] Bilateral CC and MLO view(s) were taken. Technologist: Kristen Valverde, Technologist Prior study comparison: November 18, 2018, bilateral digital mammo screening bilat, performed at [facility]. April 18, 2015, bilateral digital mammo screening bilat, performed at [facility]. January 19, 2014, bilateral digital mammo screening bilat, performed at [facility]. FINDINGS: The breast tissue is almost entirely fat. The Volpara volumetric breast density category is: A. There has been no change in the appearance of the mammogram from the prior studies. There is no interval development of dominant mass, architectural distortion, or grouped microcalcification typical of malignancy. 3-D tomosynthesis shows no additional findings. Assessment: BI-RADS/ACR category 1 mammogram. Negative Mammogram. Recommendation Routine screening mammogram of both breasts in 1 year (for women over age 40). This patient's Lifetime Breast Cancer RIsk is estimated at 3.6 %. This mammogram was interpreted with the aid of an FDA-approved computer-aided dectection system. Electronically Signed By: Ramses Villareal MD 02/09/20 0922
--- NOTE | 2020-02-17 08:51 | DEXA ---
AP SPINE L1 - L4 1.160 -0.3 1.4 LT FEMUR TOTAL 1.175 1.3 2.8 LT NECK 1.142 0.7 2.5 RT FEMUR TOTAL 1.082 0.6 2.1 RT NECK 1.002 -0.3 1.5 TOTAL BODY TOTAL OTHER COMMENTS: Normal bone densitometry of the spine and hips. The increased density of the spine does not represent a significant change. The increased density of the left hip does not represent significant change. The decreased density of the right hip does represent a significant change. The density of the spine has decreased 17.1% since the initial exam on 04/24/2005. The increased 1.4% since the most recent exam on 10/22/2013. The density of the left hip has decreased 9.9% since the initial exam on 04/24/2005. The density of the left hip has decreased 1.6% since the most recent exam on 10/22/2013. The density of the right hip has decreased 15.7% since the initial exam on 04/24/2005. The density of the right hip has decreased 6.0% since the most recent exam on 10/22/2013. FOLLOW-UP: Recommendation for the next bone density exam: 5 years. JIMENEZ
== END ==
LOC: M WHC 08:17
PROVIDERS: ATTEND Nurse Practitioner Family
DX: Z12.31 Encounter for screening mammogram for malignant neoplasm of breast (principal); M85.851 Other specified disorders of bone density and structure, right thigh; M85.852 Other specified disorders of bone density and structure, left thigh

== ENCOUNTER 2020-08-21 10:51 | Emergency (ER) | payer MEDICARE, BC ==
[~2020-08-21] VITALS: Ht 170.2 cm; Wt 127.3 kg
[2020-08-21 11:06] VITALS: BP 180/87
[2020-08-21] MEDS ORDERED: AMLO1TAB24 PO (11:24)
--- NOTE | 2020-08-21 11:28 | REP ---
INDICATION: fall. COMPARISON: Comparison chest x-ray is from April 16, 2018.. TECHNIQUE: Three views. FINDINGS: There is a impacted slightly comminuted fracture of the surgical neck of the right humerus new from the comparison chest x-ray. Glenohumeral articulation is normally aligned. There is acromion process spurring and narrowing of the subacromial space consistent with degeneration of the rotator cuff. No other fracture is seen. IMPRESSION: Impacted slightly comminuted fracture of the surgical neck of the right humerus. <Electronically signed by Ramses Villareal > 08/21/20 1124
--- NOTE | 2020-08-21 11:29 | REP ---
INDICATION: fall. COMPARISON: None. TECHNIQUE: Two views. FINDINGS: Two views of the right humerus demonstrate an impacted surgical neck fracture of the proximal humerus. There is medial displacement and slight impaction. Medial displacement measures 2.4 cm. No distal humeral fracture is seen.. . No opaque foreign body noted. IMPRESSION: Slightly impacted fracture of the surgical neck of the proximal humerus on the right with 2.4 cm of medial displacement. <Electronically signed by Ramses Villareal > 08/21/20 [id number]
[2020-08-21] MEDS ORDERED: MORPHINE 2 MG/ML 1ML VIAL (J2270) IV ONE (12:00)
[2020-08-21] MEDS ORDERED: PERCOCET 5MG/325MG TAB PO ONE (12:45)
--- NOTE | 2020-08-21 12:49 | REP ---
INDICATION: right - markwith request. COMPARISON: Comparison is made with today's radiograph showing surgical neck fracture with impaction and some displacement.. TECHNIQUE: Helical scanning is acquired and 3 mm axial images are generated. Coronal and sagittal MPR images are generated. FINDINGS: There is a comminuted impacted fracture of the surgical neck of the humerus as seen on radiographs. There is 12-13 mm of posterolateral displacement of the distal fragment. There is some apex posterolateral angulation. Fracture involves the greater tuberosity portion of the proximal humerus as well. The glenohumeral articulation is normally aligned. No scapular fracture or distal clavicle fracture is appreciated. No rib fracture is seen. There is soft tissue swelling about the fracture. IMPRESSION: Comminuted impacted and somewhat displaced fracture of the surgical neck of the right humerus as above. <Electronically signed by Ramses Villareal > 08/21/20 [id number]
[2020-08-21] MEDS ORDERED: PERC5TAB12 PO (13:15)
== END 2020-08-21 13:38 | disposition home or self-care (01) ==
LOC: EDBD 10:51 → M ED 10:51
DX: S42.301A Unspecified fracture of shaft of humerus, right arm, initial encounter for closed fracture (principal); W00.0XXA Fall on same level due to ice and snow, initial encounter; Y92.9 Unspecified place or not applicable; Y93.9 Activity, unspecified; Y99.9 Unspecified external cause status; N39.0 Urinary tract infection, site not specified; E78.5 Hyperlipidemia, unspecified; I10 Essential (primary) hypertension
CPT/HCPCS: 73030; 73060; 73200; 96374; 99284; J2270

== ENCOUNTER → 2021-03-29 | Outpatient (CLI) | payer MEDICARE, BC ==
[~2021-03-29] MED LIST changes: +AMLO1TAB24 PO; +OMEP40CA4 PO; -OMEP40CA97 PO
--- NOTE | 2021-03-29 12:22 | REP ---
INDICATION: JOAQUIN SCR MAMMO. COMPARISON: Multiple TECHNIQUE: Digital screening mammography was carried out bilaterally in the CC and MLO projections using both 2D and 3D modalities and compared to the prior exams. By history, the patient has no complaints of a palpable breast abnormality or other significant breast complaints. FINDINGS: There are no abbe soft tissue densities or spiculated masses. There is no internal architectural distortion. In the right breast slightly upper inner quadrant there is a small grouping of calcifications, which although present on prior exams may have changed, increasing in number and possibly varying in size, shape, and radiographic density. There are no other suspicious features seen in either breast. The Volpara volumetric breast density pattern is a IMPRESSION: BIRADS/ACR category 0 mammogram. Right breast calcifications seen, as described above, and for which diagnostic digital magnified spot compression views are recommended in the CC and true lateral projections. This patient's Tyrer-Cuzick lifetime breast cancer risk assessment score is 3.4%. This mammogram was interpreted with the aid of an FDA-approved computer-aided detection system. The patient states she had a clinical breast exam in February 2021 . The patient letter being requested is M0. RECOMMENDATION: As above <Electronically signed by Gerard Arora > 03/29/21 2140
== END ==
LOC: M WHC 11:15
PROVIDERS: ATTEND Nurse Practitioner Family
DX: Z12.31 Encounter for screening mammogram for malignant neoplasm of breast (principal)

== ENCOUNTER → 2021-04-20 | Outpatient (CLI) | payer MEDICARE, BC ==
--- NOTE | 2021-04-20 14:25 | REP ---
INDICATION: ADDL VIEWS - RIGHT BREAST - CALCS. COMPARISON: 03/29/2021 as well as other prior exams. TECHNIQUE: Magnification views right breast performed in multiple projections. FINDINGS: Two adjacent micro calcific groupings are present in the medial aspect of the right breast. The more anterior grouping has been present on multiple prior exams appears relatively stable dating back to 2013. The more posterior grouping, however, demonstrates multiple microcalcifications of varying sizes and densities, which have increased in number. Stereotactic biopsy of this cluster is recommended. IMPRESSION: BIRADS/ACR category 4, suspicious. Increasing number of clustered pleomorphic microcalcifications medial right breast, located just posterior to a relatively stable grouping of tiny calcifications. Stereotactic biopsy is recommended. This mammogram was interpreted with the aid of an FDA-approved computer-aided detection system. The patient letter being requested is M4. RECOMMENDATION: Recommend stereotactic biopsy right breast as discussed above. <Electronically signed by Aamir Pacheco > 04/20/21 [id number]
== END ==
LOC: M WHC 13:08
PROVIDERS: ATTEND Nurse Practitioner Family
DX: R92.2 Inconclusive mammogram (principal)
CPT/HCPCS: 77065; G0279

== ENCOUNTER → 2021-05-16 | Outpatient (CLI) | payer MEDICARE, BC ==
[~2021-05-16] MED LIST changes: +BISO1TAB18 PO; -BISO5TAB2 PO; +LOSA100T45 PO; -LOSA100T50 PO
[2021-05-16 13:54] VITALS: BP 138/70
== END ==
LOC: M WHCPRO 08:52
PROVIDERS: ATTEND Internal Medicine Cardiovascular Disease
DX: D24.1 Benign neoplasm of right breast (principal); N60.11 Diffuse cystic mastopathy of right breast

== ENCOUNTER → 2023-02-18 | Outpatient (CLI) | payer MEDICARE, BC ==
[~2023-02-18] MED LIST changes: -LOSA100T45 PO; +LOSA100T46 PO
== END ==
LOC: M WHC 09:59
PROVIDERS: ATTEND Internal Medicine Cardiovascular Disease
DX: Z12.31 Encounter for screening mammogram for malignant neoplasm of breast (principal)

== ENCOUNTER → 2024-02-21 | Outpatient (CLI) | payer MEDICARE, BC | LOC: M WHC 11:12 | PROVIDERS: ATTEND Internal Medicine Cardiovascular Disease | DX: Z12.31 Encounter for screening mammogram for malignant neoplasm of breast (principal) ==

== ENCOUNTER → 2025-07-06 | Outpatient (CLI) | payer MEDICARE, BC | LOC: M WHC 07:29 | PROVIDERS: ATTEND Nurse Practitioner Family | DX: Z12.31 Encounter for screening mammogram for malignant neoplasm of breast (principal) ==